=== PATIENT | male | born 1990 | race Caucasian/White ===

== ENCOUNTER 2021-01-01 12:07 | Emergency (ER) | payer OTHER ==
[2021-01-01] MEDS ORDERED: NAPROSYN500 MG PO (13:42)
[2021-01-01] MEDS ORDERED: CYCLOBENZAPRINE5 MG PO (13:42)
== END 2021-01-01 14:08 | disposition home or self-care (01) ==
LOC: ER1 12:07
DX: S39.012A Strain of muscle, fascia and tendon of lower back, initial encounter (principal); F17.220 Nicotine dependence, chewing tobacco, uncomplicated; Z90.49 Acquired absence of other specified parts of digestive tract; Z90.89 Acquired absence of other organs; Z88.1 Allergy status to other antibiotic agents; X50.0XXA Overexertion from strenuous movement or load, initial encounter
CPT/HCPCS: 72100; 96372; 99283; J1885

== ENCOUNTER → 2021-01-08 | Outpatient (CLI) | payer OTHER ==
[~2021-01-08] MED LIST: CYCLOBENZAPRINE5 MG PO; NAPROSYN500 MG PO
== END ==
LOC: MRI 08:42 → KOH-I 09:18 → MRI 01-10 08:30
DX: M54.5 Low back pain (principal); M47.816 Spondylosis without myelopathy or radiculopathy, lumbar region; M47.817 Spondylosis without myelopathy or radiculopathy, lumbosacral region
CPT/HCPCS: 72148

== ENCOUNTER 2022-01-23 22:46 | Emergency (ER) | payer OTHER ==
[2022-01-23] MEDS ORDERED: CLEOCIN HCL150 MG PO (23:05)
[2022-01-23] MEDS ORDERED: IBUPROFEN600 MG PO (23:05)
== END 2022-01-23 23:08 | disposition home or self-care (01) ==
LOC: ER1 22:46
DX: L03.115 Cellulitis of right lower limb (principal); L03.116 Cellulitis of left lower limb
CPT/HCPCS: 99282

== ENCOUNTER 2022-01-24 21:02 | Emergency (ER) | payer OTHER ==
[~2022-01-24 21:02] MED LIST changes: +CLEOCIN HCL150 MG PO; +IBUPROFEN600 MG PO
[2022-01-24 21:55] LABS: HEMOGLOBIN 13.5 gm/dl (14.0-17.5); RED BLOOD COUNT 4.79 M/UL (4.20-5.50); WHITE BLOOD COUNT 7.8 K/UL (4.5-11.0)
[2022-01-24 22:12] LABS: BUN/CREATININE RATIO 12 (0-10)
== END 2022-01-25 02:30 | disposition home or self-care (01) ==
LOC: ER1 21:02
PROVIDERS: Student in an Organized Health Care Education/Training Program
DX: U07.1 COVID-19 (principal); L03.115 Cellulitis of right lower limb; Z90.89 Acquired absence of other organs; Z88.1 Allergy status to other antibiotic agents
CPT/HCPCS: 0240U; 71046; 80053; 81001; 83605; 83690; 83735; 84100; 85025; 86140; 87040; 87086; 93005; 96361; 96374; 99284; J0696